=== PATIENT | female | born 1990 | race Caucasian/White ===

== ENCOUNTER 2019-11-04 03:48 | Inpatient (IN) | payer OTHER ==
[2019-11-04] MEDS ORDERED: Lactated Ringers 1000 ML Bag* 1,000 ML IV ONE (04:41)
[2019-11-04] MEDS ORDERED: Buffered Lidocaine 1% SYRIN* 1 ML/SYRINGE INTRADERM ONE (04:41)
--- NOTE | 2019-11-04 04:54 | HP ---
General Information - Reason for Visit Contractions - General Information Maternal Age: 29 Grav: 2 Para: 0 SAB: 0 IEA: 1 Determined By: LMP Maternal Blood Type and Rh: A Positive - Results this Serology/RPR Result: Non-Reactive Rubella Result: Immune HBsAg Result: Negative HIV Result: Negative GBS Culture Result: Negative Past Medical History Delivery History: See Records Delivery History Comment: none Pertinent Past Medical History: Non-Contributory Pertinent Past Surgical History: None Pertinent Family History: See Records Family History Comment: Mother: hypertension, depression - Antepartal Records Antepartal Records: Reviewed, Complicated by: - possible dermoid cyst of right ovary Review of Systems Constitutional: Uncomfortable CV Complaint: No Respiratory: Shortness of Breath: No Gastrointestinal: Normal Bowel Movement, Nausea Genitourinary: Leaking Fluid, No Dysuria, No Bleeding Musculoskeletal: No Epigastric Pain, Contractions Neurological: No Headache, No Visual Changes Movement: Normal Exam Allergies/Adverse Reactions: Allergies No Known Allergies Allergy (Verified 11/04/19 04:11) B/P: 121/79, P: 78, R: 20, T: 98.1 Lab Values - Entire Visit: Laboratory Tests 11/04/19 04:35 Vag Amniotic Fld Detect Positive - Measurements Height: 5 ft 5 in Weight: 185 lb Weight in lbs: [id number] Body Mass Index (BMI): 30.7 Pre- Weight: 153 lb Weight Gained This : 32 lbs and 0 ozs - Exam Breast: Breast Exam Deferred CVA: No CVA Tenderness Extremities: No Edema Heart: Normal Rhythm/Heart Sounds HEENT: No Significant Findings Lungs: Clear Bilaterally Reflexes: DTR 2+ Thyroid: No Thyromegaly - Abdominal Exam Abdomen Exam: Non-Tender, Fundal Height Consistent with Dates - Ultrasound/Biophysical Profile Ultrasound Status: Not Done Targeted Exam Findings See L&D Outpatient Visit Provider Note for Findings: N/A Estimated Weight: 7.5 by simone's Cervical Exam: 5cm, 6cm Effacement: 90% Station: -1 Presenting Part: Vertex Membrane Status: Intact Amniotic Fluid Evaluation: ROM Plus Pending Bleeding/Discharge: None EFM Findings - External Monitor Findings Baseline Heart Rate: 135 External Monitor Findings: Accelerations Present, No Pattern of Variable or Late Decelerations, Variability Moderate, Baseline Stable Contractions: Regular, Moderate, 45-90 Seconds Contraction Frequency: 2-4 min Assessment/Plan - Assessment A: IUP at 38 6/7 weeks Category I FHR, no evidence of metabolic acidemia GBS negative Active labor P: Admit to inpatient Desires epidural, will draw labs and start IV Reassess PRN Anticipate SVB
[2019-11-04] MEDS ORDERED: Lactated Ringers 1000 ML Bag* 1,000 ML IV SCH ×2 (05:00→09:00)
[2019-11-04 05:09] LABS: Urine Benzodiazepine Screen None Detected (None Detect); Urine Opiates Screen None Detected (None Detect)
[2019-11-04 05:12] LABS: ABS Basophils 0.2 10^3/ul (0-0.2); ABS Lymphocytes 1.6 10^3/ul (1.0-4.8); ABS Monocytes 0.7 10^3/ul (0-0.8); ABS Neutrophils 18.2 10^3/ul (1.5-7.7); Eosinophil % 0.1 %; Hematocrit 37 % (35-47); Hemoglobin 12.8 g/dL (12.0-16.0); Mean Corpuscular HGB Conc 34 g/dL (31-36); Mean Corpuscular Hemoglobin 30 pg (27-31); Mean Corpuscular Volume 87 fL (80-97); Platelet Count 347 10^3/uL (150-450); Red Blood Count 4.28 10^6 /uL (3.70-4.87); Red Cell Distribution Width 14 % (10-15); White Blood Count 20.7 10^3/uL (3.5-10.8)
[2019-11-04] MEDS ORDERED: Oxytocin in LR* 20 UNITS/1,000 ML BAG IVPB ONE (06:48)
[2019-11-04] MEDS ORDERED: Oxytocin in LR* 20 UNITS/1,000 ML BAG IVPB SCH (07:23)
[2019-11-04] MEDS ORDERED: Glycerin ADULT SUPP PR PRN (08:05)
--- NOTE | 2019-11-04 08:10 | PROCNOTE ---
[facility] OB: Delivery Note - Delivery A Date of : 11/04/19 Time of : 07:21 [place] Sex: Female Score 1 Minute: 9 Score 5 Minutes: 9 Gestational Age in Weeks and Days at Delivery: Missing required information. Delivery Method: Spontaneous Vaginal Labor: Spontaneous Did Patient attempt ?: N/A, No Previous Amniotic Fluid: Clear Estimated Blood Loss: 350 Anesthesia/Analgesia: None, Other Delivered By: Tiffanie Teran - Nursery Level of Nursery: Regular/Bedside - Perineum Perineal Injury: Vaginal Laceration, 1st Degree Perineal Injury Comment: Local Lidocaine for Repair of 1st Degreee Vaginal Laceration Perineal Repair: By Delivering Practioner - Events Delivery Events of Note: Pitocin Only After Delivery Delivery Events of Note Comment: Compounded Right Hand at Delivery - Additional Delivery Notes Additional Delivery Notes: at 38 6/7 weeks in spontaneous labor progressed to complete. AROM to clear fluid at 0542, began pushing at 0545. Slow controlled delivery of head OA to [facility] at 0721, compound right hand. Shoulders delivered easily with next push. Female delivered to maternal abdomen, HR > 110, vigorous with spontaneous cry. Apgars 9 and 9. Cord was clamped x 2 and cut by infants father once pulsations ceased. Pitocin IV initiated for brisk vaginal bleeding. Intact camilo placenta at 0727, fundus firm with massage. Vagina and perineum inspected, first degree laceration noted and repaired as above. Infant feeding plan is breast. Mother and baby stable at time of note, infant weight pending for skin to skin. EBL = 350 cc
[2019-11-04] MEDS ORDERED: Simethicone TAB* 80 MG TAB.CHEW PO SCH (08:30)
[2019-11-04] MEDS: Docusate CAP* 100 MG PO SCH ×3 (09:15→19:50)
[2019-11-04] MEDS: Dibucaine 1% 28.35 GM TUBE PR PRN (09:15)
[2019-11-04] MEDS: Ibuprofen TAB* 600 MG PO PRN ×3 (09:15→23:38)
[2019-11-04] MEDS: Witch Hazel PAD* JAR TOPICAL PRN (09:16)
[2019-11-04] MEDS ORDERED: Lidocaine 1% INJ* 10 MG/ML 30 ML SDV ONE (10:06)
[2019-11-04] MEDS: Acetaminophen TAB* 325 MG PO PRN (23:37)
[2019-11-05 05:44] LABS: ABS Basophils 0.1 10^3/ul (0-0.2); ABS Eosinophils 0.1 10^3/ul (0-0.6); ABS Lymphocytes 2.8 10^3/ul (1.0-4.8); ABS Monocytes 1.3 10^3/ul (0-0.8); ABS Neutrophils 12.9 10^3/ul (1.5-7.7); Eosinophil % 0.5 %; Hematocrit 35 % (35-47); Hemoglobin 11.7 g/dL (12.0-16.0); Lymphocyte % 16.4 %; Mean Corpuscular HGB Conc 33 g/dL (31-36); Mean Corpuscular Hemoglobin 30 pg (27-31); Mean Corpuscular Volume 90 fL (80-97); Mean Platelet Volume 6.7 fL (7.4-10.4); Nucleated Red Blood Cells % 0.1; Platelet Count 285 10^3/uL (150-450); Red Blood Count 3.93 10^6 /uL (3.70-4.87); Red Cell Distribution Width 14 % (10-15); White Blood Count 17.2 10^3/uL (3.5-10.8)
[2019-11-05] MEDS: Acetaminophen TAB* 325 MG PO PRN ×2 (06:21→13:00)
[2019-11-05] MEDS: Ibuprofen TAB* 600 MG PO PRN ×3 (06:21→19:47)
[2019-11-05] MEDS: Docusate CAP* 100 MG PO SCH ×3 (08:41→19:47)
[2019-11-05] MEDS: Dibucaine 1% 28.35 GM TUBE PR PRN (11:02)
[2019-11-05] MEDS ORDERED: Misoprostol TAB* 200 MCG PR ONE (19:13)
[2019-11-05] MEDS: Ferrous Gluconate TAB* 324 MG TAB PO SCH ×2 (19:48→19:49)
[2019-11-06] MEDS: Ibuprofen TAB* 600 MG PO PRN ×2 (04:20→11:13)
[2019-11-06] MEDS: Docusate CAP* 100 MG PO SCH (08:43)
[2019-11-06] MEDS: Acetaminophen TAB* 325 MG PO PRN (08:43)
[2019-11-06 08:52] VITALS: BP 130/73
[2019-11-06] MEDS ORDERED: Influenza VAC *QUAD* 2019-20* 0.5 ML SYRINGE IM ONE (09:00)
[2019-11-06] MEDS: Witch Hazel PAD* JAR TOPICAL PRN (11:05)
[2019-11-06] MEDS: Dibucaine 1% 28.35 GM TUBE PR PRN (11:05)
== END 2019-11-06 12:45 | disposition home or self-care (01) | DRG 560 ==
LOC: MCHOBOUT 03:48 → MCHOB 04:38
PROVIDERS: ADMIT Midwife; ATTEND Midwife
PROC: 10E0XZZ Delivery of Products of Conception, External Approach (ICD-10-PCS; principal; 2019-11-04)
PROC: 10907ZC Drainage of Amniotic Fluid, Therapeutic from Products of Conception, Via Natural or Artificial Opening (ICD-10-PCS; 2019-11-04)
PROC: 0HQ9XZZ Repair Perineum Skin, External Approach (ICD-10-PCS; 2019-11-04)
DX: O99.89 Other specified diseases and conditions complicating pregnancy, childbirth and the puerperium (principal); Z37.0 Single live birth; D27.0 Benign neoplasm of right ovary; O71.4 Obstetric high vaginal laceration alone; O32.6XX0 Maternal care for compound presentation, not applicable or unspecified; Z3A.38 38 weeks gestation of pregnancy
CPT/HCPCS: 36415; 80307; 84112; 85025; 86850; 86900; 86901; 90686; A9270-GY; G0480

== ENCOUNTER 2022-08-25 21:38 | Inpatient (IN) ==
[2022-08-25] MEDS ORDERED: Nalbuphine 10 MG/ML 1 ML VIAL IV PRN (22:03)
[2022-08-25] MEDS ORDERED: Buffered Lidocaine 1% SYRIN 1 ml INTRADERM ONE (22:03)
[2022-08-25] MEDS ORDERED: Promethazine INJ(RESTRICTED) 25 MG/ML 1 ml VIAL IV PRN (22:03)
[2022-08-25] MEDS ORDERED: Lactated Ringers 1000 ml BAG 1,000 ML IV ONE (22:03)
[2022-08-25 22:28] LABS: ABS Basophils 0.1 10^3/ul (0-0.2); ABS Lymphocytes 1.4 10^3/ul (1.0-4.8); ABS Monocytes 1.1 10^3/ul (0-0.8); ABS Neutrophils 15.2 10^3/ul (1.5-7.7); Eosinophil % 0.1 %; Hematocrit 35 % (35-47); Hemoglobin 11.6 g/dL (12.0-16.0); Mean Corpuscular HGB Conc 33 g/dL (31-36); Mean Corpuscular Hemoglobin 29 pg (27-31); Mean Corpuscular Volume 86 fL (80-97); Mean Platelet Volume 7.1 fL (7.4-10.4); Platelet Count 274 10^3/uL (150-450); Red Blood Count 4.08 10^6 /uL (3.70-4.87); Red Cell Distribution Width 14 % (10-15); White Blood Count 17.9 10^3/uL (3.5-10.8)
[2022-08-25] MEDS ORDERED: Oxytocin in LR 20,000 MILLI.UNIT/1,000 ML BAG IV SCH ×2 (22:30→23:30)
[2022-08-25] MEDS ORDERED: Lactated Ringers 1000 ml BAG 1,000 ML IV SCH ×2 (23:00→23:45)
[2022-08-25 23:03] LABS: Urine Benzodiazepine Screen None Detected (None Detect); Urine Cannabinoids Screen None Detected (None Detect); Urine Opiates Screen None Detected (None Detect)
[2022-08-25] MEDS ORDERED: Glycerin ADULT 2.4 gm SUPP PR PRN (23:23)
[2022-08-25] MEDS ORDERED: Witch Hazel PAD JAR TOPICAL PRN (23:23)
[2022-08-26 08:08] LABS: ABS Basophils 0.1 10^3/ul (0-0.2); ABS Lymphocytes 2.1 10^3/ul (1.0-4.8); ABS Monocytes 1.5 10^3/ul (0-0.8); ABS Neutrophils 11.8 10^3/ul (1.5-7.7); Eosinophil % 0.2 %; Hematocrit 31 % (35-47); Hemoglobin 10.8 g/dL (12.0-16.0); Lymphocyte % 13.4 %; Mean Corpuscular HGB Conc 35 g/dL (31-36); Mean Corpuscular Hemoglobin 29 pg (27-31); Mean Corpuscular Volume 84 fL (80-97); Mean Platelet Volume 6.8 fL (7.4-10.4); Platelet Count 232 10^3/uL (150-450); Red Blood Count 3.72 10^6 /uL (3.70-4.87); Red Cell Distribution Width 14 % (10-15); White Blood Count 15.5 10^3/uL (3.5-10.8)
[2022-08-26] MEDS: Dibucaine 1% OINT 28.35 GM TUBE PR PRN (11:36)
[2022-08-27 11:04] VITALS: BP 116/75
[2022-08-27] MEDS: Dibucaine 1% OINT 28.35 GM TUBE PR PRN (12:52)
== END 2022-08-27 18:30 | disposition home or self-care (01) | DRG 560 ==
LOC: MCHOBOUT 21:38 → MCHOB 21:57
PROVIDERS: ADMIT Obstetrics & Gynecology; ATTEND Obstetrics & Gynecology